=== PATIENT | male | born 1980 | race Caucasian/White ===

== ENCOUNTER 2022-07-31 23:10 | Emergency (ER) | payer OTHER, SELFPAY ==
[2022-07-31 23:11] VITALS: BP 125/76; PULSE 118; RESP 19; TEMP 36.3; O2SAT 95; BMI 25.0
--- NOTE | 2022-07-31 23:35 | RAD_ITS ---
EXAM: XR CHEST, 2 VIEWS CLINICAL INDICATION: cough TECHNIQUE: Frontal and lateral views of the chest. This report was created using [employer] report generation technology. COMPARISON: None. FINDINGS: LUNGS AND PLEURAL SPACES: Unremarkable. No consolidation or edema. No pneumothorax. No effusion. HEART: Unremarkable. Cardiac silhouette not enlarged. MEDIASTINUM: Central airways and mediastinal contour are unremarkable. BONES/JOINTS: Unremarkable. SOFT TISSUES: Unremarkable. RAD/Chest PA and Lateral IMPRESSION: No acute cardiopulmonary abnormality. Electronically Signed: Nakul Gil MD at 0:01 EDT ,
[2022-07-31 23:49] LABS: Absolute Lymphocyte Count 2.21 X10^3/uL (0.83-4.51); Absolute Neutrophil Count 7.4 X10^3/uL (2.0-7.7); Basophil# 0.06 X10^3/uL; Basophil% 0.5 % (0-1); Eosinophil# 0.09 X10^3/uL; Eosinophils% 0.8 % (0-5); Hematocrit 45.4 % (40-54); Hemoglobin 15.8 g/dL (13.0-16.5); Lymphocyte # 2.21 X10^3/ul (0.83-4.51); Mean Corp Hgb Conc 34.8 g/dL (32-36); Mean Corpuscular Hgb 32.6 pg (27.0-32.0); Mean Corpuscular Volume 93.6 fL (80-94); Mean Platelet Vol. 9.1 fl (6.2-12.0); Monocyte# 1.22 X10^3/uL; Monocyte% 11.1 % (0-10); NRBC Flagged by Analyzer 0 % (0-5); Neutrophil # 7.42 X10^3/uL (2.7-7.7); Neutrophil % 67.3 % (47-70); Platelet Count 231 K/mm3 (150-450); RBC Distribution Width CV 12.2 % (11.6-14.6); RBC Distribution Width SD 42.5 fl (35.1-43.9); Red Blood Count 4.85 M/mm3 (4.6-6.2)
[2022-08-01 00:08] LABS: Anion Gap 8 (5-15); BUN 6 mg/dL (7-18); BUN/Creat Ratio 7.4 RATIO (10-20); Calcium,Total 9.1 mg/dL (8.5-10.1); Chloride 105 mmol/L (98-107); Creatinine, Serum 0.81 mg/dL (0.70-1.30); EST Glomerular Filtration Rate 113 mL/min (>60); Est Glom Filt Rate - Afr Amer 136 mL/min (>60); Estimated Creatinine Clearance 126.42 ml/min; Glucose 84 mg/dL (74-106); Potassium 3.5 mmol/L (3.5-5.1); Sodium Level 139 mmol/L (136-145)
[2022-08-01] MEDS: Ketorolac 30 MG/ML Syringe IV (00:30)
[2022-08-01] MEDS: 0.9% Normal Saline 1,000 ML 1000 ML IV (00:30)
--- NOTE | 2022-08-01 00:30 | EX.ED.DYSGE1 ---
HPI History of Present Illness Chief Complaint: General Illness Informant: patient Onset/Context/Timing Onset: Weeks Context: Gradual Onset Timing: Waxes and wanes Narrative Narrative: Patient presents with cough, body aches, headache for the past 2 weeks. He states he has been ill for 2 weeks now but today at work he was sent home early and told he needed to go see a doctor. He does not believe he had significant fever at home. He has had cough but denies wheezing. He denies diarrhea but has had a couple episodes of vomiting. He did not take a test for COVID or flu. PFSH PFSH Medical History no medical history no medical history Allergy/AdvReac Type Severity Reaction Status Date / Time acetaminophen AdvReac Other Verified 07/31/22 23:14 Social History Smoking Status: Current every day smoker tobacco type: cigarettes ROS ROS ED Constitutional Constitutional ED: Reports chills Eyes Eyes: Denies change in vision or discharge from eye(s) ENT ENT ED: Denies discharge from eye(s), rhinorrhea or sore throat Cardiovascular Cardiovascular: Denies chest pain or palpitations Respiratory/Chest Respiratory/Chest: Reports cough and dyspnea Gastrointestinal Gastrointestinal: Reports nausea and vomiting; Denies abdominal pain or diarrhea Genitourinary Genitourinary ED: Denies dysuria Musculoskeletal Musculoskeletal: Reports myalgias; Denies back pain or extremity pain Integumentary Denies Abrasions or rash Neurologic Neurologic: Reports headache(s); Denies weakness Psychiatric Psychiatric: Denies anxiety or depression Allergic/Immunologic Allergic/Immunologic ED: Denies lip swelling or urticaria EXAM Physical Exam Const Vital Signs: 07/31/22 23:11 Temperature 97.3 F L Temperature Source Temporal Pulse Rate 118 H Respiratory Rate 19 H Blood Pressure 125/76 H Blood Pressure Mean 92 Pulse Ox 95 Oxygen Delivery Method Room Air Positive well nourished and well developed General Appearance ED: well developed HEENT Reports normocephalic and head/scalp atraumatic Eyes PERRL and EOMs intact bilaterally Neck supple Chest Wall inspection of chest normal and palpation of chest normal Resp normal respiratory effort and clear to auscultation bilaterally Cardio regular rhythm Rate: tachycardic GI normal to inspection, nondistended, normoactive bowel sounds Palpation: soft Extremity normal to inspection Neuro oriented x3 and no sensory deficits noted Sensorium / Orientation: alert Motor Exam: strength 5/5 throughout Psych mental status grossly normal Skin no rashes or lesions noted MDM MDM MDM Narrative Medical decision making narrative: Labwork obtained to evaluate for leukocytosis, anemia, and electrolyte derangement. Chest x-ray obtained to evaluate for acute lung pathology, cardiac size, or mediastinal abnormality. Swab for COVID and influenza obtained. Patient ordered IV fluids along with Toradol. Lab Data Attestation: I reviewed the patient's lab results. Labs: Laboratory Results - last 24 hr 07/31/22 07/31/22 23:43 23:43 WBC 11.0 RBC 4.85 Hgb 15.8 Hct 45.4 MCV 93.6 MCH 32.6 H MCHC 34.8 RDW Std Deviation 42.5 RDW Coeff of Zeeshan 12.2 Plt Count 231 MPV 9.1 Immature Gran % (Auto) 0.300 Neut % (Auto) 67.3 Lymph % (Auto) 20.0 Todd % (Auto) 11.1 H Eos % (Auto) 0.8 Baso % (Auto) 0.5 Absolute Neuts (auto) 7.4 Absolute Lymphs (auto) 2.21 Nucleated RBC % 0 Sodium 139 Potassium 3.5 Chloride 105 Carbon Dioxide 26.0 Anion Gap 8 BUN 6 L Creatinine 0.81 Estim Creat Clear Calc 126.42 Est GFR (MDRD) Af Amer 136 Est GFR (MDRD) Non-Af 113 BUN/Creatinine Ratio 7.4 L Glucose 84 Calcium 9.1 Radiography Chest X-Ray - ED: 2 View, Read by ED Physician, Normal, Heart, Lungs, Mediastinum and No Infiltrates Diagnostic Testing: Clinical Impression(s) from Imaging Studies Chest X-Ray 07/31/22 23:35 IMPRESSION: No acute cardiopulmonary abnormality. Electronically Signed: Nakul Gil MD at 0:01 EDT , Treatment and Re-Evaluation :: 2 view chest x-ray per my interpretation reveals no evidence of infiltrate. Radiology interpretation is reviewed and agrees. CBC and chemistry studies are unremarkable. On repeat evaluation patient's heart rate is now 92. He states he feels improved. As I am in the room nursing staff comes in to hang his fluids and give him his Toradol. Due to an extremely busy ER this had been delayed. We will give him at least 500 cc IV fluid bolus and have him ready for discharge when this is complete. Patient's COVID and influenza test is negative. We discussed possibility of sending a COVID PCR test as patient has had symptoms more than 5 days, however he is already out of his 5 to 10-day quarantine window and would not change our treatment whatsoever. In light of this I will not bother sending the COVID PCR. Patient will continue supportive care. Return instructions given. He is referred to local PCP to establish care. Discharge Plan Triage Chief Complaint: General Illness ED Provider: Tiff Mcconnell Dx/Rx/DC Orders Clinical Impression: Viral syndrome Instructions: ED Viral Syndrome (Adult) Primary Care Provider: Care Physician,No Primary Referrals: Atiya Pan MD [Med Staff - Interior Design Principal] - As Needed Care Physician,No Primary [Primary Care Provider] - Disposition Disposition: Home, Self Care
[2022-08-01 01:10] VITALS: BP 113/79; PULSE 74; RESP 18; O2SAT 100
== END 2022-08-01 01:12 | disposition home or self-care (01) ==
PROVIDERS: Emergency Provider Emergency Medicine; Visit Provider Emergency Medicine
DX: B34.9 Viral infection, unspecified (principal); F17.210 Nicotine dependence, cigarettes, uncomplicated
CPT/HCPCS: 71046; 80048; 85025; 87428; 96361; 96374; 99282; J7030; A4216